=== PATIENT | male | born 1965 | race Caucasian/White ===

== ENCOUNTER 2017-09-20 16:10 | Emergency (ER) | payer OTHER ==
[~2017-09-20] VITALS: Ht 175.3 cm; Wt 107.5 kg
[~2017-09-20 16:10] MED LIST: BUCALSEP SPRAY30 ML MM; CATAFLAM50 MG PO; CELEBREX50 MG PO; FLEXERIL10 MG PO; LEVAQUIN750 MG PO; LOSARTAN-HCTZ1 EACH; LOTRISONE CREAM45 GM TP; MOTRIN800 MG PO; NORFLEX100MG PO; ORPH100T PO; SYNTHROID50 MCG PO; TUSSI PRES-B L120 M1 PO; VOLTAREN-XR100 MG PO; ZOCOR20 MG
== END 2017-09-20 18:10 | disposition home or self-care (01) ==
LOC: ER 16:10
DX: J06.9 Acute upper respiratory infection, unspecified (principal)